=== PATIENT | female | born 1950 | race Caucasian/White ===

== ENCOUNTER → 2023-05-30 12:07 | Outpatient (REF) | payer OTHER, SELFPAY | LOC: RAD 12:07 | PROVIDERS: ATTENDING PHYSICIAN Nurse Practitioner Primary Care | DX: M25.562 Pain in left knee (principal) | CPT/HCPCS: 73564 ==

== ENCOUNTER → 2023-11-26 16:33 | Outpatient (REF) | payer OTHER, SELFPAY | LOC: PAVMRI 16:33 | PROVIDERS: ATTENDING PHYSICIAN Physician Assistant; FAMILY PHYSICIAN Internal Medicine Geriatric Medicine | DX: M54.14 Radiculopathy, thoracic region (principal); M54.9 Dorsalgia, unspecified | CPT/HCPCS: 72146 ==

== ENCOUNTER → 2023-12-12 08:16 | Outpatient (REF) | payer OTHER, SELFPAY | LOC: WDC 08:16 | PROVIDERS: ATTENDING PHYSICIAN Nurse Practitioner Adult Health; FAMILY PHYSICIAN Internal Medicine Geriatric Medicine | DX: Z12.31 Encounter for screening mammogram for malignant neoplasm of breast (principal) | CPT/HCPCS: 77063; 77067 ==

== ENCOUNTER → 2023-12-28 08:23 | Outpatient (REF) | payer OTHER, SELFPAY | LOC: MRI 3T 08:23 | PROVIDERS: ATTENDING PHYSICIAN Physician Assistant; FAMILY PHYSICIAN Internal Medicine Geriatric Medicine | DX: M54.16 Radiculopathy, lumbar region (principal); M79.671 Pain in right foot; M79.672 Pain in left foot | CPT/HCPCS: 72148 ==

== ENCOUNTER → 2024-03-31 19:47 | Outpatient (REF) | payer OTHER, SELFPAY | LOC: MRI 3T 19:47 | PROVIDERS: ATTENDING PHYSICIAN Nurse Practitioner Family; FAMILY PHYSICIAN Internal Medicine Geriatric Medicine | DX: M25.561 Pain in right knee (principal) | CPT/HCPCS: 73721 ==

== ENCOUNTER → 2024-05-03 15:16 | Outpatient (REF) | payer OTHER, SELFPAY ==
[2024-05-03 16:08] LABS: Blood Urea Nitrogen 18 mg/dl (7-17); Calcium 9.9 mg/dl (8.4-10.2); Carbon Dioxide 29 mmol/L (22-30); Chloride 101 mmol/L (98-107); Glucose 86 mg/dl (70-99); Potassium 4.2 mmol/L (3.5-5.1); Sodium 140 mmol/L (135-145); eGFR > 60.00
== END ==
LOC: REG 15:16
PROVIDERS: ATTENDING PHYSICIAN Specialist; FAMILY PHYSICIAN Nurse Practitioner Primary Care
DX: Z01.818 Encounter for other preprocedural examination (principal); M25.551 Pain in right hip; M25.552 Pain in left hip
CPT/HCPCS: 36415; 73523; 80048

== ENCOUNTER 2024-06-11 12:56 | Outpatient (RCR) | payer OTHER, SELFPAY | END 2024-06-11 23:59 | disposition home or self-care (01) | LOC: RPT 12:56 | PROVIDERS: ATTENDING PHYSICIAN Physician Assistant Surgical; FAMILY PHYSICIAN Nurse Practitioner Primary Care | DX: Z47.89 Encounter for other orthopedic aftercare (principal); M25.561 Pain in right knee; R26.89 Other abnormalities of gait and mobility; M62.81 Muscle weakness (generalized); X58.XXXD Exposure to other specified factors, subsequent encounter; Y93.89 Activity, other specified; Y92.89 Other specified places as the place of occurrence of the external cause; Y99.0 Civilian activity done for income or pay | CPT/HCPCS: 97010; 97110; 97162; 97535 ==

== ENCOUNTER 2024-07-12 15:56 | Outpatient (RCR) | payer OTHER, SELFPAY | END 2024-07-12 23:59 | disposition home or self-care (01) | LOC: RPT 15:56 | PROVIDERS: ATTENDING PHYSICIAN Physician Assistant Surgical; FAMILY PHYSICIAN Nurse Practitioner Primary Care | DX: Z47.89 Encounter for other orthopedic aftercare (principal); M25.561 Pain in right knee; R26.89 Other abnormalities of gait and mobility; M62.81 Muscle weakness (generalized); X58.XXXD Exposure to other specified factors, subsequent encounter; Y93.89 Activity, other specified; Y92.89 Other specified places as the place of occurrence of the external cause; Y99.0 Civilian activity done for income or pay | CPT/HCPCS: 97010; 97110; 97530 ==

== ENCOUNTER 2024-08-11 13:05 | Outpatient (RCR) | payer OTHER, SELFPAY | END 2024-08-11 23:59 | disposition home or self-care (01) | LOC: RPT 13:05 | PROVIDERS: ATTENDING PHYSICIAN Physician Assistant Surgical; FAMILY PHYSICIAN Nurse Practitioner Primary Care | DX: Z47.89 Encounter for other orthopedic aftercare (principal); M25.561 Pain in right knee; R26.89 Other abnormalities of gait and mobility; Z73.6 Limitation of activities due to disability; M62.81 Muscle weakness (generalized); X58.XXXD Exposure to other specified factors, subsequent encounter; Y93.89 Activity, other specified; Y92.89 Other specified places as the place of occurrence of the external cause; Y99.0 Civilian activity done for income or pay; Z98.890 Other specified postprocedural states | CPT/HCPCS: 97110; 97530 ==

== ENCOUNTER → 2024-09-22 11:28 | Outpatient (REF) | payer OTHER, SELFPAY | LOC: RAD 11:28 | PROVIDERS: ATTENDING PHYSICIAN Specialist; FAMILY PHYSICIAN Nurse Practitioner Primary Care | DX: Z98.890 Other specified postprocedural states (principal); M79.661 Pain in right lower leg | CPT/HCPCS: 93971 ==

== ENCOUNTER → 2024-11-28 08:35 | Outpatient (REF) | payer OTHER, SELFPAY | LOC: PAVMRI 08:35 | PROVIDERS: ATTENDING PHYSICIAN Specialist; FAMILY PHYSICIAN Nurse Practitioner Primary Care | DX: Z98.890 Other specified postprocedural states (principal) | CPT/HCPCS: 73721 ==

== ENCOUNTER 2024-12-10 08:48 | Outpatient (RCR) | payer OTHER, SELFPAY | END 2024-12-10 23:59 | disposition home or self-care (01) | LOC: RPT 08:48 | PROVIDERS: ATTENDING PHYSICIAN Specialist; FAMILY PHYSICIAN Nurse Practitioner Primary Care | DX: Z47.89 Encounter for other orthopedic aftercare (principal); M71.21 Synovial cyst of popliteal space [Baker], right knee; M79.661 Pain in right lower leg; Z73.6 Limitation of activities due to disability; R26.89 Other abnormalities of gait and mobility; M62.81 Muscle weakness (generalized) | CPT/HCPCS: 97110; 97162; 97535 ==

== ENCOUNTER → 2024-12-27 14:50 | Outpatient (REF) | payer OTHER, SELFPAY | LOC: RAD 14:50 | PROVIDERS: ATTENDING PHYSICIAN Nurse Practitioner Adult Health; FAMILY PHYSICIAN Nurse Practitioner Primary Care | DX: M81.0 Age-related osteoporosis without current pathological fracture (principal) | CPT/HCPCS: 77080 ==

== ENCOUNTER 2025-01-05 13:07 | Outpatient (RCR) | payer OTHER, SELFPAY | END 2025-01-05 23:59 | disposition home or self-care (01) | LOC: RPT 13:07 | PROVIDERS: ATTENDING PHYSICIAN Specialist; FAMILY PHYSICIAN Nurse Practitioner Primary Care | DX: Z47.89 Encounter for other orthopedic aftercare (principal); M71.21 Synovial cyst of popliteal space [Baker], right knee; M79.661 Pain in right lower leg; Z73.6 Limitation of activities due to disability; M62.81 Muscle weakness (generalized); R26.89 Other abnormalities of gait and mobility | CPT/HCPCS: 97110; 97140; 97530 ==

== ENCOUNTER → 2025-01-24 18:36 | Outpatient (REF) | payer OTHER, SELFPAY | LOC: WDC 18:36 | PROVIDERS: ATTENDING PHYSICIAN Nurse Practitioner Adult Health; FAMILY PHYSICIAN Nurse Practitioner Primary Care | DX: Z12.31 Encounter for screening mammogram for malignant neoplasm of breast (principal) | CPT/HCPCS: 77063; 77067 ==

== ENCOUNTER 2025-02-07 09:35 | Outpatient (RCR) | payer OTHER, SELFPAY | END 2025-02-07 23:59 | disposition home or self-care (01) | LOC: RPT 09:35 | PROVIDERS: ATTENDING PHYSICIAN Specialist; FAMILY PHYSICIAN Nurse Practitioner Primary Care | DX: Z47.89 Encounter for other orthopedic aftercare (principal); M71.21 Synovial cyst of popliteal space [Baker], right knee; M79.661 Pain in right lower leg; Z73.6 Limitation of activities due to disability; M62.81 Muscle weakness (generalized); R26.89 Other abnormalities of gait and mobility | CPT/HCPCS: 97110; 97530; 97535 ==

== ENCOUNTER 2025-02-16 15:29 | Outpatient (RCR) | payer OTHER, SELFPAY | END 2025-02-17 06:54 | disposition home or self-care (01) | LOC: RPT 15:29 | PROVIDERS: ATTENDING PHYSICIAN Specialist; FAMILY PHYSICIAN Nurse Practitioner Primary Care | DX: Z47.89 Encounter for other orthopedic aftercare (principal); M71.21 Synovial cyst of popliteal space [Baker], right knee; M79.661 Pain in right lower leg; Z73.6 Limitation of activities due to disability; M62.81 Muscle weakness (generalized); R26.89 Other abnormalities of gait and mobility | CPT/HCPCS: 97110; 97530 ==